=== PATIENT | female | born 1995 | race Asian ===

== ENCOUNTER 2016-07-01 05:37 | Observation (INO) | payer BC ==
--- NOTE | ~2016-07-01 | OR ---
Unit #: [id number] #: [id number] Patient: OMID JRENIGAN [id number] [address] [place], [place] [address] [id number] MR#: [id number] NAME: OMID JERNIGAN ROOM: [facility] Date of Procedure: 07/01/2016 Admission Date: 07/01/2016 Surgeon: Arnol Pratt M.D. : 1995 Attending Physician: Arnol Pratt M.D. Primary Care Physician: Primary Care Physician No OPERATIVE REPORT PREOPERATIVE DIAGNOSIS Palpable mass, left breast 12 o'clock position. POSTOPERATIVE DIAGNOSIS Palpable mass, left breast 12 o'clock position. PROCEDURE PERFORMED Excisional biopsy of palpable mass of left breast 12 o'clock position. ANESTHESIA General LMA anesthesia with 0.5% Marcaine plain local anesthesia. FINDINGS The area was excised and sent to Pathology. SPECIMENS Sent to Pathology. COMPLICATIONS None apparent. CONDITION The patient tolerated the procedure well. INDICATIONS FOR PROCEDURE The patient is a 20-year-old female, who presents at this time with a palpable mass in the left breast 12 o'clock position. An ultrasound in the past showed this to be 1.6 cm. It is now increased to 2.2 cm. 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 Because of the change in size, it was felt best to proceed with excisional biopsy for pathologic diagnosis and treatment. DESCRIPTION OF PROCEDURE After obtaining informed consent as well as receiving preoperative antibiotics, the patient was brought to the operating room and after adequate general LMA anesthesia was obtained, had her left breast prepped and draped in a sterile fashion. A curvilinear incision was made at the edge of the superior aspect of the areola with a knife and taken down through the subdermal tissues with electrocautery. Dissection was taken down through the subcutaneous tissues to the level of the lesion. The lesion was grasped with an Allis clamp and was circumferentially excised Unit #: [id number] #: [id number] Patient: OMID JERNIGAN with electrocautery with good hemostasis. It was sent to Pathology. The wound was irrigated and hemostasis was obtained using Bovie, infiltrated with 0.5% Marcaine plain local anesthesia. The subdermal tissues were reapproximated with interrupted 3-0 Vicryl suture and the skin was closed with a 4-0 Vicryl subcuticular stitch. Benzoin, Steri-Strips were applied over the wound in an occlusive manner followed by dry dressing and a Tegaderm dressing. Needle counts, sponge counts, and instrument counts were all correct as reported by the scrub nurse x2. The patient went from the operating room to the recovery room in stable condition. Dictated by... Beatriz Carroll/abel TD: 07/01/2016 13:18 JOB #: [id number] CC: [facility] OPERATIVE REPORT X Arnol Pratt MD X PROCEDURE OPERATIVE NOTE
--- NOTE | ~2016-07-01 | EKG ---
PATIENT: OMID JERNIGAN UNIT #: [id number] Ventricular Rate: 73 BPM Atrial Rate: 73 BPM P-R Interval: 126 ms QRS Duration: 96 ms Q-T Interval: 396 ms QTC Calculation(Bezet): 436 ms P [place]: 58 degrees Calculated R [place]: 83 degrees Calculated T [place]: 46 degrees Diagnosis Line: Normal sinus rhythm with sinus arrhythmia Diagnosis Line: Incomplete right bundle branch block Diagnosis Line: Borderline ECG Diagnosis Line: No previous ECGs available Diagnosis Line: Confirmed by SHAMIKA BLAND MD ([id number]) on Diagnosis Line: 07/01/2016 3:28:34 PM INTERPRETING MD: BALDO GARCIA
--- NOTE | ~2016-07-01 | CO ---
Unit #: [id number] #: [id number] Patient: OMID MANRIQUE [id number] [address] [place], [place] [address] [id number] I MR#: [id number] NAME: OMID MANRIQUE ROOM: Age: 20 Sex: F Admission Date: 07/01/2016 : 1995 Attending Physician: Arnol Pratt M.D. Primary Care Physician: No Primary Care Physician CONSULTATION REPORT Ms. Manrique is a 20-year-old female we were asked to see in the recovery room after breast biopsy for a breast lump. She apparently had some laryngospasm post procedure and then desaturated and felt to have negative pressure pulmonary edema. She had some frothy bloody sputum that she coughed up. She is now maintained on BiPAP and we are asked to see. No chest x-ray has been done. She states she had not had a cold or congestion or any problems preoperatively. She has no breathing problems, no medical problems. She takes no medications. She does not admit to any shortness of breath. She has no chest pain. She is a nonsmoker. ACTIVE PROBLEMS 1. Breast lump. 2. Fibrocystic disease of the breasts. 3. History of iron deficiency anemia. CURRENT MEDICATIONS Zyrtec as needed. SURGERY Left ACL tear in the past. FAMILY HISTORY Reflux and hypertension. SOCIAL HISTORY Nonsmoking. Does consume alcohol. REVIEW OF SYSTEMS Very difficult patient on BiPAP. No fever or chills. No purulent sputum, no chest pain, no shortness of breath. PHYSICAL EXAMINATION GENERAL: Female, in no distress. VITAL SIGNS: Blood pressure 117/68, pulse 57, respiratory rate 15, afebrile. Weight 63 grams. HEENT: Normocephalic, atraumatic. Pupils equal, round and reactive. Sclerae are not icteric. Nasal passages/oral cavity not examined, on full face BiPAP. NECK: Supple. Trachea midline. No cervical or supraclavicular lymphadenopathy. LUNGS: Clear to auscultation and percussion. CARDIAC: Regular rate and rhythm. Could not appreciate murmur, rub or gallop. ABDOMEN: Nontender. Bowel sounds present. No hepatosplenomegaly. Unit #: [id number] #: [id number] Patient: OMID MANRIQUE EXTREMITIES: Without clubbing, cyanosis or edema. Pulses 2+ bilaterally. DIAGNOSTIC STUDIES LABORATORY: Laboratory studies currently pending. IMAGING: Chest x-ray pending. IMPRESSION 1. Likely negative pressure pulmonary edema with acute hypoxemic respiratory failure. 2. Postop breast lump. PLAN Will check chest x-ray. Continue BiPAP. Gentle diuresis. Observation should improve overnight. Will also rule out ME. Check BNP. Further recommendations pending this. Dictated by... Beatriz Arellano/violeta TD: 07/01/2016 12:12 JOB #: [id number] CONSULTATION REPORT X Edmund Bravo MD X CONSULTATION REPORT
--- NOTE | ~2016-07-01 | CR71 ---
[facility] A Service of [facility] RADIOLOGY TEXT RESULTS PATIENT: OMID JERNIGAN LOCATION: [address] : [birth year] UNIT #: [id number] AGE: [address]: Arnol Pratt MD SEX: F ORDER DR: [id number] [facility] [address] [place]. [place], [place] [address] [id number] I MR#: [id number] Acc #: [id number] NAME: OMID JERNIGAN : 1995 SEX: F STUDY DATE/TIME: 07/01/2016 11:53 UNIT: [facility] ROOM: [facility] STUDY DESCRIPTION: CR Chest Single View Attending Physician: Arnol Pratt M.D. Ordering Physician: Arnol Pratt M.D. Primary Care Physician: No Primary Care Physician MEDICAL IMAGING REPORT This report is preliminary unless electronic signature is present EXAM Chest, single view, 07/01/2016, 1153 hours. CLINICAL HISTORY Patient complains of shortness of air today. Patient is postop left breast biopsy today. COMPARISON None FINDINGS Portable upright chest demonstrates normal cardiac, mediastinal, and hilar contours. There is diffuse bilateral mixed interstitial and airspace change concerning for edema, less likely infection. There is no pleural effusion or pneumothorax. IMPRESSION The lungs are abnormal with diffuse bilateral mixed interstitial and airspace change most suggestive of edema, less likely diffuse infection. There is no pleural effusion or pneumothorax. Dictated by... Yenifer Triplett M.D. THIS IS AN ELECTRONICALLY VERIFIED REPORT Yenifer Triplett M.D. at 07/01/2016 2:33 PM SMM/ronel TD: 07/01/2016 14:12 JOB #: [id number] [facility] A Service [facility] RADIOLOGY TEXT RESULTS PATIENT: OMID JERNIGAN LOCATION: [address] : [birth year] UNIT #: [id number] AGE: [address]: Arnol Pratt MD SEX: F ORDER DR: MEDICAL IMAGING REPORT COPY
--- NOTE | ~2016-07-01 | CR72 ---
[facility] A Service of [facility] RADIOLOGY TEXT RESULTS PATIENT: OMID JERNIGAN LOCATION: [address] : [birth year] UNIT #: [id number] AGE: [address]: Arnol Pratt MD SEX: F ORDER DR: [id number] [facility] [address] [facility]. [place], [place] [address] [id number] I MR#: [id number] Acc #: [id number] NAME: OMID JERNIGAN : 1995 SEX: F STUDY DATE/TIME: 07/02/2016 4:22 UNIT: [facility] ROOM: [facility] STUDY DESCRIPTION: CR Chest Single View Portable Attending Physician: Arnol Pratt M.D. Ordering Physician: Edmund Bravo M.D. Primary Care Physician: No Primary Care Physician MEDICAL IMAGING REPORT This report is preliminary unless electronic signature is present EXAM AP portable chest, 07/02/2016 at 04:22. HISTORY Cough, bloody sputum, respiratory failure. Symptoms began 07/01/2016. Postop breast biopsy. COMPARISON STUDIES AP portable chest, 07/01/2016. FINDINGS Ill-defined interstitial and alveolar disease changes are seen diffusely throughout both lungs. There appears to be slightly improved aeration in the lungs, compared to yesterday's study. Heart size is stable and within normal limits. No pleural effusion or pneumothorax. IMPRESSION Mixed hazy interstitial and alveolar disease changes in both lungs may be slightly improved, compared to yesterday's study. Dictated by... Brittaney Saldana M.D. THIS IS AN ELECTRONICALLY VERIFIED REPORT Brittaney Saldana M.D. at 07/03/2016 1:51 AM EUGENE/terri TD: 07/02/2016 11:51 JOB #: [id number] MEDICAL IMAGING REPORT [facility] A Service [facility] RADIOLOGY TEXT RESULTS PATIENT: OMID JERNIGAN LOCATION: [address] : [birth year] UNIT #: [id number] AGE: [address]: Arnol Pratt MD SEX: F ORDER DR: MISTY
[~2016-07-01 05:37] MED LIST: IBUPROFEN600 MG PO; NO MEDICATIONS
[2016-07-01 12:23] LABS: ARTERIAL BLD GAS O2 SATURATION 98.2 % (90.0-100.0); ARTERIAL BLOOD GAS CARBOXY HB 0.5 %sat (0.0-9.0); ARTERIAL BLOOD GAS HCO3 23.3 mmol/L
[2016-07-01 12:24] LABS: ARTERIAL BLOOD GAS ALLEN TEST NORMAL; ARTERIAL BLOOD GAS ART SITE RIGHT RADIAL; ARTERIAL DRAW? YES
[2016-07-01 12:34] LABS: BASOPHIL% 0.1 % (0-2.5); HEMATOCRIT 36.8 % (35.0-45.0); HEMOGLOBIN 11.8 gm/dL (12.0-16.0); LYMPHOCYTE# 0.8 X10e3 (1.0-3.5); LYMPHOCYTE% 4.9 % (17.0-45.0); MEAN CELL VOLUME 85.7 FL (83-96); MEAN CORPUSCULAR HEMOGLOBIN 27.6 PG (28-34); MEAN CORPUSCULAR HGB CONC 32.2 g/dL (30-36); MEAN PLATELET VOLUME 7.5 FL (6.5-11.5); MONOCYTE# 0.2 X10e3 (0-1.0); MONOCYTE% 1.2 % (3.0-12.0); NEUTROPHIL# 15.5 X10e3 (1.5-7.1); NEUTROPHIL% 93.8 % (40-75); PLATELET COUNT 274 X10e3 (140-420); RED BLOOD COUNT 4.29 X10e (3.90-5.30); RED CELL DISTRIBUTION WIDTH 12.8 % (11.0-15.5); WHITE BLOOD COUNT 16.5 X10e3 (4.0-10.5)
[2016-07-01 12:36] LABS: DIFF IND YES
[2016-07-01 13:05] LABS: PLATELET ESTIMATE NORMAL (NORMAL); RBC NORMAL YES
[2016-07-01 13:42] LABS: BLOOD UREA NITROGEN 11 mg/dL (9-23); BUN/CREATININE RATIO 18.33; CALCIUM SERUM 8.8 mg/dL (8.4-10.2); CARBON DIOXIDE 23 mmol/L (22-31); CHLORIDE 107 mmol/L (100-111); CK TOTAL 150 IU/L (26-140); CREATININE SERUM 0.6 mg/dL (0.6-1.4); GLOM FILT RATE Estimated ABOVE60 mL/min (>60); GLUCOSE FASTING 102 mg/dL (70-110); POTASSIUM 3.8 mmol/L (3.5-5.1); SODIUM 134 mmol/L (135-145)
[2016-07-01 14:01] LABS: %MB 0.9 % (0.0-4.0); MB 1.4 ng/ml
[2016-07-01 19:06] LABS: %MB 1.2 % (0.0-4.0); MB 1.9 ng/ml
[2016-07-01 19:54] LABS: URINE SOURCE CATH
[2016-07-01 19:59] LABS: URINE APPEARANCE CLEAR; URINE BILIRUBIN NEG (NEG); URINE BLOOD 1+ (NEG); URINE COLOR YELLOW; URINE GLUCOSE NEG (NEG); URINE KETONE TRACE (NEG); URINE LEUKOCYTE ESTERASE NEG (NEG); URINE NITRATE NEG (NEG); URINE PROTEIN NEG (NEG); URINE SPECIFIC GRAVITY 1.011 (1.003-1.035); URINE UROBILINOGEN 0.2 MG/DL (NEG)
[2016-07-01 20:02] LABS: U HYALINE CASTS AUWI 0-2 /[LPF]; URBCS1 AUWI 25-50 /[HPF] (0-2); URINE BACTERIA AUWI NEG (NEGATIVE); URINE SQUAMOUS EPITHELIAL CELL NONE SEEN /[HPF]; UWBCS1 AUWI 0-2 (0-5)
[2016-07-01 20:12] LABS: CULTURE INDICATED? NO
[2016-07-02 01:25] LABS: %MB 1.2 % (0.0-4.0)
[2016-07-02] MEDS ORDERED: NORCO1 TAB 10/3 PO (09:47)
[2016-07-02] MEDS ORDERED: PHENERGAN SUPP25 M1 PO (09:47)
== END 2016-07-02 10:13 | disposition home or self-care (01) | DRG 584 ==
LOC: CSUR 05:37 → CPACUOF 10:50 → CICCU2 13:32
PROVIDERS: Internal Medicine; Surgery
PROC: 0HBU0ZX Excision of Left Breast, Open Approach, Diagnostic (ICD-10-PCS; principal; 2016-07-02)
DX: D48.62 Neoplasm of uncertain behavior of left breast (principal); J84.9 Interstitial pulmonary disease, unspecified; J98.4 Other disorders of lung
CPT/HCPCS: 36600; 71010; 80048; 81003; 82550; 82553; 82803; 83880; 84484; 84703; 85025; 88307; 93005; 94010; 94660; 94760; G0378; J0690; J1100; J1940; J2250; J2405; J3010